=== PATIENT | male | born 1935 | race Caucasian/White ===

== ENCOUNTER 2018-11-08 13:30 | Emergency (ER) | payer MEDICARE, OTHER ==
[~2018-11-08] VITALS: Ht 175.3 cm; Wt 79.0 kg
[2018-11-08 14:01] LABS: BASOPHILS % (AUTO) 0.3 % (0-1); EOSINOPHILS % (AUTO) 0.3 % (0-6); HEMOGLOBIN 11.6 g/dl (14.0-17.9); LYMPHOCYTES # (AUTO) 0.4 X10'3 (1.1-4.8); LYMPHOCYTES % (AUTO) 3.6 % (21-51); MEAN CORPUSCULAR HEMOGLOBIN 26.5 PG (27.0-31.0); MEAN CORPUSCULAR HGB CONC 32.1 % (33.0-36.5); MEAN CORPUSCULAR VOLUME 82.5 FL (78-98); MEAN PLATELET VOLUME 9.5 FL (7.4-10.4); MONOCYTES # (AUTO) 1.3 X10'3 (0-0.9); MONOCYTES % (AUTO) 10.2 % (2-12); NEUTROPHILS # (AUTO) 10.6 X10'3 (1.8-7.7); NEUTROPHILS % (AUTO) 85.6 % (42-75); PLATELET COUNT 293 X10'3 (140-440); RED BLOOD COUNT 4.36 X10'6 (4.70-6.10); RED CELL DISTRIBUTION WIDTH 15.4 % (11.5-14.5); WHITE BLOOD COUNT 12.4 X10'3 (4.5-11.0)
[2018-11-08] MEDS ORDERED: levoFLOXACIN-Levaquin 750MG/D5 150 ML IV STA (14:09)
[2018-11-08] MEDS ORDERED: ipratropium/albuterol 3ml nebule NEB ONE (14:10)
[2018-11-08 14:15] LABS: ALANINE AMINOTRANSFERASE 15 U/L (12-78); ALBUMIN 2.3 G/DL (3.4-5.0); ALBUMIN/GLOBULIN RATIO 0.5 (1.1-1.5); ALKALINE PHOSPHATASE 75 IU/L (46-116); ANION GAP 14 (8-16); ASPARTATE AMINO TRANSFERASE 16 U/L (10-37); BILIRUBIN,TOTAL 0.5 MG/DL (0.1-1.0); BLOOD UREA NITROGEN 18 MG/DL (7-18); BUN/CREATININE RATIO 10.8 (5.4-32.0); CALCIUM 8.2 MG/DL (8.5-10.1); CHLORIDE 105 MMOL/L (99-107); CREATININE 1.67 MG/DL (0.60-1.10); GLUCOSE 110 MG/DL (70-104); POTASSIUM 3.4 MMOL/L (3.5-5.1); SODIUM 141 MMOL/L (135-145); TOTAL CARBON DIOXIDE 21.7 MMOL/L (24-32); TOTAL PROTEIN 6.8 G/DL (6.4-8.2); eGFR 39 ML/MIN
[2018-11-08 14:24] LABS: PROTHROMBIN TIME 10.7 SECONDS (9.0-12.0)
[2018-11-08 14:25] LABS: INR 1.1 INR; PARTIAL THROMBOPLASTIN TIME 34 SECONDS (22-32)
[2018-11-08] MEDS ORDERED: LEVO750T21 PO (15:14)
[2018-11-08 15:20] VITALS: BP 120/71
[2018-11-08] MEDS ORDERED: methylPREDNISolone sod succ 125mg/2ml vial IV ONE (15:30)
== END 2018-11-08 16:57 | disposition home or self-care (01) ==
LOC: ER 13:30
DX: J18.1 Lobar pneumonia, unspecified organism (principal); I25.2 Old myocardial infarction; J45.909 Unspecified asthma, uncomplicated; Z87.891 Personal history of nicotine dependence
CPT/HCPCS: 36415; 71045; 80053; 83605; 84145; 84484; 85025; 85610; 85730; 87040; 87502; 87503; 93005; 94640; 94760; 96365; 96375; 99284; J1956; J2930